=== PATIENT | female | born 1990 | race Two or more races ===

== ENCOUNTER 2024-08-28 06:41 | Day surgery (SDC) | payer OTHER ==
[2024-08-26 09:36] LABS: HEMATOCRIT 39.7 % (36.0-45.00); HEMOGLOBIN 13.3 g/dL (12.0-15.00); MEAN CELL VOLUME 89.4 fL (80.00-100.00); MEAN CORPUSCULAR HGB CONC 33.5 g/dl (32.0-36.0); PLATELET COUNT 272 K/uL (150-450); RED BLOOD COUNT 4.44 M/uL (4.00-6.00); RED CELL DISTRIBUTION WIDTH 15.2 % (11.5-14.5)
[2024-08-26 10:10] LABS: PARTIAL THROMBOPLASTIN TIME 30.2 SECONDS (22.0-34.0); PROTHROMBIN TIME 10.9 SECONDS (9.0-11.5)
[2024-08-26 10:49] LABS: ALBUMIN 3.4 gm/dL (3.4-5.0); BILIRUBIN TOTAL 0.43 mg/dL (0.3-1.2); CALCIUM 9.1 mg/dL (8.5-10.1); CREATININE SERUM 0.69 mg/dL (0.55-1.02); GFR 96.27; GLOBULINA 4.1 G/DL (2.4-3.5); POTASSIUM 3.92 mEq/L (3.5-5.1); TOTAL PROTEIN 7.5 gm/dL (6.4-8.2)
[~2024-08-28 06:41] MED LIST: SINGULAIR10 MG PO
[2024-08-28] MEDS ORDERED: CEFOXITIN SODIUM 2,000 MG VIAL IV ONE (15:46)
[2024-08-28] MEDS ORDERED: PROMETHAZINE HCL 50 MG/ML AMPUL IM ONE (16:45)
[2024-08-28] MEDS ORDERED: MORPHINE SULFATE 4 MG/ML VIAL IV PRN (16:45)
[2024-08-28] MEDS ORDERED: MORPHINE SULFATE 2 MG/ML CARTRIDGE IV ONE ×2 (19:20→19:50)
[2024-08-28] MEDS ORDERED: MORPHINE SULFATE 4 MG/ML VIAL IV ONE (20:20)
== END 2024-08-28 20:10 | disposition home or self-care (01) ==
LOC: CIR.AMB 06:41
PROVIDERS: ATTEND Obstetrics & Gynecology
DX: O03.4 Incomplete spontaneous abortion without complication (principal); J32.9 Chronic sinusitis, unspecified; Z88.1 Allergy status to other antibiotic agents

== ENCOUNTER 2025-04-02 00:28 | Emergency (ER) | payer OTHER ==
[~2025-04-02] VITALS: Ht 165.1 cm; Wt 99.8 kg
[2025-04-02 00:47] VITALS: BP 114/90; O2SAT 99
[2025-04-02] MEDS ORDERED: RINGERS SOLUTION,LACTATED 1,000 ML IV ONE (01:15)
[2025-04-02] MEDS ORDERED: LOVENOX40 MG/0.4 SUBCUTANEO (01:24)
[2025-04-02] MEDS ORDERED: PROMETRIUM200 MG VAG (01:25)
[2025-04-02] MEDS ORDERED: ASA81 MG PO (01:25)
[2025-04-02 01:48] LABS: BASO % 0.5 % (0.1-1.2); EOS # 0.43 (0.04-0.54); EOS % 3.6 % (0.7-7.0); LYMPH # 2.03 (1.18-3.74); LYMPH % 16.8 % (19.3-53.1); MEAN PLATELET VOLUME 10.10 fl (9.4-12.4); MONO # 1.14 (0.24-0.82); MONO % 9.4 % (4.7-12.5); NEUT # 8.42 (1.56-6.13); NEUT % 69.5 % (34.0-71.1); RED CELL DISTRIBUTION WIDTH 13.4 % (11.6-14.4)
[2025-04-02 02:24] LABS: URINE APPEARANCE Clear; URINE BILIRRUBIN Negative (NEGATIVE); URINE BLOOD Large; URINE COLOR Yellow; URINE GLUCOSE Negative (NEGATIVE); URINE LEUKOCYTE Negative; URINE NITRATE Negative; URINE PROTEIN Trace (NEGATIVE); URINE UROBILINOGEN 1.0 E.U./dl
[2025-04-02 02:27] LABS: URINE BACTERIA 9.5 uL (0.0-1933); URINE EPITHELIAL CELLS 6.4 uL (0.0-38.8); URINE RBC 439.2 uL (0.0-20.8); URINE WBC 2.9 uL (0.0-23.2)
[2025-04-02 02:29] LABS: INR 1.01
[2025-04-02 02:43] LABS: URINE CAST 0.14 uL (0.0-1.40); URINE KETONE 40 (NEGATIVE)
[2025-04-02 02:49] LABS: BUN CREA RATIO 16.0 (7.0-25.0); CREATININE SERUM 0.5 mg/dL (0.55-1.02); GFR 139.6; GLUCOSE FASTING 98.0 mg/dL (65-100); OSMOLALITY SERUM 272.0 MOSM/KG (275-295)
[2025-04-02 02:53] LABS: HCG QUANTITATIVE 121134.0 mUI/mL (1-3)
== END 2025-04-02 03:34 ==
LOC: ER 00:28
PROVIDERS: General Practice
DX: O20.9 Hemorrhage in early pregnancy, unspecified (principal); O34.11 Maternal care for benign tumor of corpus uteri, first trimester; Z3A.11 11 weeks gestation of pregnancy; Z88.8 Allergy status to other drugs, medicaments and biological substances